=== PATIENT | male | born 1960 | race African-American/Black ===

== ENCOUNTER 2024-10-17 11:32 | Observation (INO) | payer OTHER, SELFPAY ==
[2024-10-17 15:39] VITALS: BMI 34.2
[2024-10-17] MEDS ORDERED: Morphine 2 MG/ML VIAL SLOW IVP PRN (16:09)
[2024-10-17] MEDS ORDERED: Ondansetron PF 4 MG/2 ML Vial IVP PRN (16:09)
[2024-10-17] MEDS ORDERED: Acetaminophen 650 MG Suppository PR PRN (16:10)
[2024-10-17] MEDS ORDERED: Acetaminophen 325 MG TAB PO PRN (16:10)
[2024-10-17] MEDS ORDERED: Senokot S 8.6-50 MG TAB PO PRN (16:10)
[2024-10-17] MEDS ORDERED: Albuterol 200 PUFF (6.7GM INHALER) INH PRN (16:13)
[2024-10-17] MEDS: Morphine 4 MG/ML VIAL ONE (18:12)
[2024-10-17] MEDS: Pantoprazole 40 MG VIAL IVP SCH (18:21)
[2024-10-17] MEDS: levETIRAcetam 500 MG TAB PO SCH (20:24)
[2024-10-17] MEDS: Carvedilol 25 MG TAB PO SCH (20:24)
[2024-10-17] MEDS ORDERED: Pantoprazole DR 40 MG TAB PO SCH (21:00)
[2024-10-18 06:07] LABS: #Basophils Less than 0.03 10x3/uL (0.0-0.2); %Basophils 0.3 % (0.0-1.0); %Eosinophils 0.7 % (0.0-10.0); %Lymphocytes 33.8 % (21.0-51.0); %Monocytes 14.1 % (0.0-10.0); %Neutrophils 50.8 % (42.0-75.0); Hematocrit 41.4 % (42.0-52.0); Hemoglobin 14.1 g/dL (14.0-18.0); Mean Corpuscular HGB CONC 34.1 g/dL (32.0-36.0); Mean Corpuscular Hemoglobin 30.3 pg (27.0-31.0); Mean Platelet Volume 9.3 fL (7.4-10.4); Platelet Count 236 10x3/uL (130-400); RBC Distribution Width 13.5 % (11.5-14.5); Red Blood Cell (RBC) Count 4.65 mill/uL (4.70-6.10)
[2024-10-18 06:29] LABS: ALT (SGPT) 11 U/L (8-55); AST (SGOT) 19 U/L (5-34); Albumin 3.4 g/dL (3.4-4.8); Alkaline Phosphatase 181 U/L (40-110); Anion Gap 11 mmol/L (10-20); BUN (Urea Nitrogen) 8 mg/dL (8.4-25.7); Bilirubin, Total 0.8 mg/dL (0.2-1.2); Calc. Creatinine Clearance 87 mL/min (70-130); Calcium 9.1 mg/dL (7.8-10.44); Carbon Dioxide 28 mmol/L (23-31); Chloride 103 mmol/L (98-107); Estimated GFR 57; Globulin 3.8 g/dL (2.4-3.5); Glucose 119 mg/dL (80-115); Potassium 3.5 mmol/L (3.5-5.1); Protein, Total 7.2 g/dL (5.8-8.1); Sodium 138 mmol/L (136-145)
[2024-10-18] MEDS: Amlodipine 10 MG TAB PO SCH (09:59)
[2024-10-18] MEDS: Atorvastatin Calcium 40 MG TAB PO SCH (09:59)
[2024-10-18] MEDS: Pantoprazole 40 MG VIAL IVP SCH (10:00)
[2024-10-18] MEDS: DULoxetine 60 MG CAP PO SCH (10:00)
[2024-10-18 15:43] VITALS: BP 121/76; TEMP 97.6
== END 2024-10-18 12:39 | disposition home or self-care (01) ==
LOC: T4-B 14:10 → INTOOBSV 14:10
PROVIDERS: ADMIT Internal Medicine; ATTEND Internal Medicine
DX: R10.13 Epigastric pain (principal); I10 Essential (primary) hypertension; I25.10 Atherosclerotic heart disease of native coronary artery without angina pectoris; I25.2 Old myocardial infarction; I48.91 Unspecified atrial fibrillation; J44.9 Chronic obstructive pulmonary disease, unspecified; E78.5 Hyperlipidemia, unspecified; K21.9 Gastro-esophageal reflux disease without esophagitis; G40.909 Epilepsy, unspecified, not intractable, without status epilepticus; B19.20 Unspecified viral hepatitis C without hepatic coma; Z90.49 Acquired absence of other specified parts of digestive tract; Z86.73 Personal history of transient ischemic attack (TIA), and cerebral infarction without residual deficits; Z87.891 Personal history of nicotine dependence; Z98.890 Other specified postprocedural states; Z79.899 Other long term (current) drug therapy
CPT/HCPCS: 36415; 80053; 85025; 96374; 96376; G0378; J2470